=== PATIENT | male | born 1950 | race Caucasian/White ===

== ENCOUNTER 2018-11-23 17:14 | Emergency (ER) | payer OTHER ==
[2018-11-23 17:21] VITALS: BP 141/85
--- NOTE | 2018-11-23 17:49 | EDPHY ---
H & P Stated Complaint: R foot swelling Time Seen by Provider: 11/23/18 17:33 HPI/ROS: CHIEF COMPLAINT: Right 1st toe redness and swelling HISTORY OF PRESENT ILLNESS: 68-year-old male with arthritis presents with right 1st toe redness and swelling. Intermittent mild toe redness and swelling over the past month. Onset of recurrent toe erythema a few days ago, associated with increased swelling. Associated with minimal pain. Walked 3 miles today with minimal discomfort. Woke up with a RUGGIERO this am, thinks it's d/ t toe infection. No clear alleviating or aggravating factors. No fever, drainage or other associated symptoms. ROS: No numbness, weakness, excessive bleeding, syncopal episode, other injury. - Personal History Current Tetanus/Diphtheria Vaccine: Yes Tetanus Vaccine Date: < 10 YEARS - Medical/Surgical History Hx Asthma: No Hx Chronic Respiratory Disease: No Hx Diabetes: No Hx Cardiac Disease: No Hx Renal Disease: No Hx Cirrhosis: No Hx Alcoholism: No Hx HIV/AIDS: No Hx Splenectomy or Spleen Trauma: No Other PMH: CLOSED HEAD INJURY, HLA-B27 TYPE ARTHRITIS, APPENDECTOMY - Social History Smoking Status: Never smoked - Physical Exam Exam: Alert and oriented, pleasant Extremities: Right 1st toe-erythema and swelling of the distal phalanx, no swelling around the nail bed and no fluctuance, IP and MTP range of motion without pain, remainder of foot/RLL normal appearing and NT Skin: Intact, callus on the sole of the 1st toe Neuro: Motor and sensory intact Vascular: Capillary refill brisk distally Constitutional: Initial Vital Signs Temperature (C) 36.8 C 11/23/18 17:19 Heart Rate 67 11/23/18 17:19 Respiratory Rate 18 11/23/18 17:19 Blood Pressure 141/85 H 11/23/18 17:19 O2 Sat (%) 94 11/23/18 17:19 O2 Delivery Mode Room Air Allergies/Adverse Reactions: mold Allergy (Verified 11/23/18 17:21) Itching BLUE CHEESE Allergy (Uncoded 11/23/18 17:21) Itching Home Medications: Medication Instructions Recorded Oxazepam 10 mg PO HS 11/19/15 Aleve 220 MG (*) 1 tab HS PRN 04/07/16 Aspirin 325 mg (*) 0.5 tab DAILY PRN 04/07/16 Herbals/Supplements -Info Only 1 tab DAILY 04/07/16 Methotrexate 6 tab 04/07/16 Sulfasalazine 2 tab BID 04/07/16 Cephalexin [Keflex (*)] 500 mg PO TID #30 cap 11/23/18 Medical Decision Making ED Course/Re-evaluation: This patient presents 1st toe erythema and swelling, consistent with cellulitis. No paronychia present and no pain with joint range of motion, doubt joint infection. X-ray reveals no evidence of foreign body, fracture or osteomyelitis. I will place him on Keflex. He understands that if he does not improve, he will follow up with his primary care physician. - Data Points Medications Given: Discontinued Medications Cephalexin HCl (Keflex) 500 mg PO EDNOW ONE PRN Reason: Protocol Stop: 11/23/18 18:01 Last Admin: 11/23/18 18:04 Dose: 500 mg Departure - Departure Disposition: Home, Routine, Self-Care Clinical Impression: Cellulitis of toe of right foot Condition: Good Instructions: Cellulitis (ED) Additional Instructions: Return for worsening symptoms or any concerns. Follow-up with her primary care physician. Referrals: Sabiha Mckeon MD [Medical Doctor] - As per Instructions Prescriptions: Cephalexin [Keflex (*)] 500 mg PO TID #30 cap
[2018-11-23] MEDS ORDERED: CEPHALEXIN 500 MG CAP PO ONE (18:00)
== END 2018-11-23 18:13 | disposition home or self-care (01) ==
DX: L03.031 Cellulitis of right toe (principal)